=== PATIENT | female | born 2000 | race Caucasian/White ===

== ENCOUNTER 2025-05-23 07:47 | Day surgery (SDC) | payer OTHER ==
[~2025-05-23] VITALS: Ht 157.5 cm; Wt 41.9 kg
[2025-05-23] MEDS ORDERED: ONDANSETRON ODT16 MG (07:51)
[2025-05-23] MEDS ORDERED: Midazolam HCL 1 MG/ML 5MLVIAL ONE (08:43)
== END 2025-05-23 09:45 | disposition home or self-care (01) ==
LOC: ORSCSDS 07:47
PROVIDERS: Specialist
PROC: 0DB68ZX Excision of Stomach, Via Natural or Artificial Opening Endoscopic, Diagnostic (ICD-10-PCS; principal; 2025-05-23 08:45)
PROC: 0DB58ZX Excision of Esophagus, Via Natural or Artificial Opening Endoscopic, Diagnostic (ICD-10-PCS; principal; 2025-05-23 08:45)
PROC: 0DB98ZX Excision of Duodenum, Via Natural or Artificial Opening Endoscopic, Diagnostic (ICD-10-PCS; principal; 2025-05-23 08:45)
DX: R11.0 Nausea (principal); R13.10 Dysphagia, unspecified; K31.84 Gastroparesis; K44.9 Diaphragmatic hernia without obstruction or gangrene
CPT/HCPCS: 88305; 88342; J2250; J2704; J7120